=== PATIENT | female | born 1965 ===

== ENCOUNTER 2020-12-27 20:30 | Inpatient (IN) | payer OTHER ==
[~2020-12-27] VITALS: Ht 167.6 cm; Wt 83.9 kg
[~2020-12-27 20:30] MED LIST: AMOCLA875 PO; Norco 10-325 T1 EACH PO; OXYB5 PO
[2020-12-28 03:03] LABS: BASOPHILS ABSOLUTE AUTO 0.03 K/mm3 (0.00-0.23); BASOPHILS PERCENT AUTO 0 % (0-2); EOSINOPHILS PERCENT AUTO 0 % (0-6); Hematocrit 38.6 % (33.0-51.0); Hemoglobin 12.6 g/dL (11.5-16.0); IMMATURE GRAN ABSOLUTE AUTO 0.04 K/mm3 (0.00-0.10); IMMATURE GRAN PERCENT AUTO 0 % (0-1); LYMPHOCYTES PERCENT AUTO 8 % (21-46); MONOCYTES ABSOLUTE AUTO 1.16 K/mm3 (0.16-1.47); MONOCYTES PERCENT AUTO 8 % (4-13); Mean Corpuscular HGB 27.8 pg (26.0-34.0); Mean Corpuscular HGB Conc 32.6 g/dL (31.5-36.5); Mean Corpuscular Volume 85 fL (80-100); Mean Platelet Volume 9.7 fL (9.1-12.4); NEUTROPHILS ABSOLUTE AUTO 13.06 K/mm3 (1.96-9.15); NEUTROPHILS PERCENT AUTO 84 % (41-73); Platelet Count 229 K/mm3 (150-400); RDW Coefficient Variation 12.9 % (11.7-14.2); RDW Standard Deviation 39.8 fL (35.1-46.3); Red Blood Cell Count 4.53 M/mm3 (3.80-5.20); White Blood Cell Count 15.49 K/mm3 (4.00-11.30)
[2020-12-28 03:21] LABS: Alanine Aminotransfer (ALT/SGP 19 U/L (12-78); Albumin, Blood 3.9 g/dL (3.4-5.0); Albumin/Globulin Ratio 1.1 (0.8-1.8); Alk Phos 68 U/L (50-136); Anion Gap 5 mmol/L (6-16); Aspartate Aminotrans (AST/SGOT 17 U/L (12-37); Bilirubin, Total 0.5 mg/dL (0.1-1.0); Blood Urea Nitrogen 13 mg/dL (8-24); Bun/Creatinine Ratio 14.9 (12.0-20.0); CO2, Blood 27 mmol/L (21-32); Calcium, Blood 8.7 mg/dL (8.5-10.1); Chloride, Blood 106 mmol/L (98-108); Creatinine, Blood 0.87 mg/dL (0.40-1.00); Globulin, Blood 3.7 g/dL (2.2-4.0); Glomerular Filtration Rate >60 (60-); Glucose, Blood 137 mg/dL (70-99); Potassium, Blood 3.8 mmol/L (3.5-5.5); Sodium, Blood 138 mmol/L (136-145); Total Protein, Blood 7.6 g/dL (6.4-8.2)
[2020-12-28 03:42] LABS: SARS-Cov-2 (COVID-19) PCR, MMC NEGATIVE (NEGATIVE)
--- NOTE | 2020-12-28 04:52 | NUR ---
PT ADMITTED FROM ER FOR AN OPEN DISTAL RADIUS FX R/T DOG BITE. SPLINT IN PLACE TO RIGHT ARM. CAP REFILL WNL. NPO AND AWAITING ORTHOPEDIC CONSULT WITH DR. LENNON.
--- NOTE | 2020-12-28 13:22 | NUR ---
PT TO PRE OP
--- NOTE | 2020-12-28 13:43 | NUR ---
PT INTO SDS FROM FLOOR VIA GURELOINA. History, Chart, Medications and Allergies reviewed before start of procedure. Lungs clear T/O to Auscultation. Patient confirms NPO status and agrees with scheduled surgery. Pre-Op teaching done. Pt verbalizes understanding.
--- NOTE | 2020-12-28 15:54 | NUR ---
12/28/20 1554 Anny Sosa RIGHT ARM 18 "TOURNIQUET APPLIED, PADDED. TOUNIQUET INFLATED BY ANESTHESIA 250 MMHG AT 1456 AND DEFLATED AT 1537.
--- NOTE | 2020-12-28 17:08 | NUR ---
PT ARRIVED BACK TO UNIT FROM PACU MANUELA WRAP TO RUE CDI. CAP REFILL 3 SECONDS. PT STOOD AND TRANSFERRED W/MIN ASSIST FROM GURNEY TO BED. PLACED ICE UNDER R FOREARM FOR COMFORT, PT RATING PAIN 9/10 TO RUE. PT ABLE TO LIFT ARM INDEPENDENTLY TO PLACE ICEPACK UNDER ARM. PROVIDED JELLO AND ICE WATER. CALL LIGHT IN REACH. SPOUSE AT BEDSIDE.
--- NOTE | 2020-12-28 18:15 | NUR ---
SUMMARY NO ACUTE CHANGES SINCE ARRIVING TO UNIT FROM PACU. MEDICATED PER ORDERS FOR PAIN, PT REPORTS PAIN IMPROVED TO 5/10. RESTED RUE ON ICE PACK. PT EATING DINNER AT THIS TIME. ABX INFUSING PER ORDERS. CALL LIGHT IN REACH.
--- NOTE | 2020-12-29 07:07 | NUR ---
PT DROWSY BEGINNIN OF SHIFT, BECAME INCREASINGLY MORE ALERT. VSS ON RA. DENIES PAIN. IV FLUIDS INFUSING. UP TO TOILET. USING CALL LIGHT TO MAKE NEEDS KNOWN.
--- NOTE | 2020-12-29 11:09 | NUR ---
DISCHARGE INSTRUCTIONS REVIEWED WITH PATIENT AND HER FIANCEE. PT DECLINES PAIN MEDS AT THIS TIME. MARIE PO FOOD AND FLUIDS WITHOUT NAUSEA. AMBULATING WITH USE OF WALKER, STEADY ON FEET. PT PLANS TO DISCHARGE AFTER LUNCH TODAY
--- NOTE | 2020-12-29 14:46 | NUR ---
1425 PT REPORTS RIGHT HAND FEELS LIKE BANDAGE IS TO TIGHT. MANUELA WRAPS UNWRAPPED AND REWRAPPED SL LOOSER AND PT REPORTS PAIN LESSENED. RIGHT HAND FINGERS WITH MOVEMENT AND SENSATION INTACT. FINGERS PUFFY, WARM AND BRUISED IN APPLEARANCE
--- NOTE | 2020-12-29 17:49 | NUR ---
summary pt reports pain controlled with po meds, ice and elevation. right hand swollen, bruised capillary refil less than 3 seconds, movement and sensation intact
--- NOTE | 2020-12-29 18:34 | NUR ---
DISCHARGED TO HOME WITH FAMILY. PT MARIE FULL LIQUID DIET WITHOUT NAUSEA OR ABD PAIN. PT AMBULATING IN ROOM DENIES FEELING DIZZY OR LIGHTHEADED. VERBALIZES UNDERSTANDING OF DISCHARGE INSTRUCTIONS
[2020-12-29] MEDS ORDERED: AMOCLA875 PO (18:44)
[2020-12-29] MEDS ORDERED: OXYC5 PO (18:45)
--- NOTE | 2020-12-29 19:05 | NUR ---
DISCHARGE INSTRUCTIONS REVIEWED WITH PATIENT AND HER . PT VERBALIZES UNDERSTANDING OF DRESSING CHANGES AND DISCHARGE MEDS. PT REPORTS PAIN IS ADEQUATELY CONTROLLED. MARIE PO FOOD AND FLUIDS WITHOUT NAUSEA, PT DENIES NUMBNESS OR TINGLING OF RIGHT HAND, CAPILLARY REFILL LESS THAN 3 SECONDS. DISCHARGED TO HOME WITH
--- NOTE | 2020-12-29 19:07 | NUR ---
PT HAS A FOLLOW UP APPT WITH HER PCP FOR NEXT WEEK
== END 2020-12-29 19:00 | disposition home or self-care (01) | DRG 502 ==
LOC: ER 20:30 → SURS 12-28 03:51
PROVIDERS: Orthopaedic Surgery; Physician Assistant; ADMIT Internal Medicine
PROC: 0JQG0ZZ Repair Right Lower Arm Subcutaneous Tissue and Fascia, Open Approach (ICD-10-PCS; 2020-12-28)
PROC: 0PBH0ZZ Excision of Right Radius, Open Approach (ICD-10-PCS; principal; 2020-12-28 14:45)
DX: S52.501B Unspecified fracture of the lower end of right radius, initial encounter for open fracture type I or II (principal); W54.0XXA Bitten by dog, initial encounter; Z90.710 Acquired absence of both cervix and uterus; Z20.822 Contact with and (suspected) exposure to COVID-19; Z88.5 Allergy status to narcotic agent; D50.9 Iron deficiency anemia, unspecified; S62.121A Displaced fracture of lunate [semilunar], right wrist, initial encounter for closed fracture
CPT/HCPCS: 12004; 29125; 36415; 73090; 73200; 80053; 85025; 85651; 86140; 96365; 97161; 97530; 99284-25; A9270; J0295; J1100; J1650; J1885; J2250; J2405; J2704; J3010; J7050; J7120; U0004